=== PATIENT | female | born 1970 | race Caucasian/White ===

== ENCOUNTER 2017-08-03 06:14 | Inpatient (IN) | payer BC ==
[~2017-08-03 06:14] MED LIST: Buffered Lidocaine 0.9% SYRIN* 5 ML/SYR SYRINGE INTRADERM ONE
[2017-08-03] MEDS ORDERED: CeFAZolin 1 GM PREMIX(*) 1 GM BAG (REFRIGERATE) IVPB ONE (06:42)
[2017-08-03] MEDS ORDERED: ceFAZolin 2 GM PREMIX (*) 2 GM/50 ML BAG IVPB ONE (06:42)
[2017-08-03] MEDS ORDERED: Clindamycin 900 MG IVPREMIX(* 900 MG/50 ML SDV IV ONE (06:42)
[2017-08-03] MEDS ORDERED: Buffered Lidocaine 0.9% SYRIN* 5 ML/SYR SYRINGE ONE (06:42)
[2017-08-03] MEDS ORDERED: Heparin VIAL(*) 5000 UNITS/ML VIAL (FIVE THOUSAND) ONE (06:43)
[2017-08-03] MEDS ORDERED: Bupivacaine 0.25% SDV* 30 ML ONE (06:59)
[2017-08-03] MEDS ORDERED: Atracurium* 10 MG/ML 10 ML VIAL ONE (07:35)
[2017-08-03] MEDS ORDERED: Dexamethasone IV* 4 MG/ML 1 ML (4 MG) ONE (07:35)
[2017-08-03] MEDS ORDERED: Propofol* 10 MG/ML 20 ML BTL IV PUSH ONE (07:35)
[2017-08-03] MEDS ORDERED: fentaNYL* 50 MCG/ML 2 ML VIAL (100 MCG VIAL) ONE ×3 (07:35→11:09)
[2017-08-03] MEDS ORDERED: Midazolam* 1 MG/ML 5 ML VIAL (5 MG) ONE (07:36)
[2017-08-03] MEDS ORDERED: Ondansetron INJ* 2 MG/ML VIAL ONE (08:54)
[2017-08-03] MEDS ORDERED: Ondansetron INJ* 2 MG/ML VIAL IV PRN (09:04)
[2017-08-03] MEDS ORDERED: Scopolamine 1.5 mg* PATCH TRANSDERM PRN (09:04)
[2017-08-03] MEDS ORDERED: DiMENhydriNATE IV* 50 MG/ML VIAL IV PUSH PRN (09:04)
[2017-08-03] MEDS ORDERED: Glycopyrrolate IV* 0.2 MG/ML 1 ML VIAL ONE (09:19)
[2017-08-03] MEDS ORDERED: Neostigmine Methylsulfate* 2 MG/2 ML SYRINGE ONE (09:19)
[2017-08-03] MEDS ORDERED: Acetaminophen ADULT LIQ* 650 MG/20.3 ML UDC PO PRN (09:25)
[2017-08-03] MEDS ORDERED: diPHENhydraMINE IV* 50 MG/ML 1 ml VIAL (BENADRYL) SLOW PUSH PRN (09:25)
--- NOTE | 2017-08-03 09:25 | SURGPN ---
Brief Operative Note - Surgery Procedures: Procedures Pre-OP Diagnoses: Clinically severe obesity Post-op Diagnosis: same Procedure: Laparoscopic sleeve gastrectomy Surgeon: Kishore Asst: Tam KAUR Anethesia: MALLORY Laguerre EBL: minimal IVF: 1400cc LR Specimen: portion of stomach Drains: none
[2017-08-03] MEDS ORDERED: HYDROmorphone INJ* 2 MG/ML CARPUJECT SYRINGE ONE (09:33)
[2017-08-03] MEDS: fentaNYL* 50 MCG/ML 2 ML VIAL (100 MCG VIAL) IV PRN ×5 (09:36→11:11)
[2017-08-03] MEDS: HYDROmorphone INJ* 2 MG/ML CARPUJECT SYRINGE IV PRN ×8 (09:38→20:44)
[2017-08-03] MEDS ORDERED: Albuterol HFA INHALER* 8 gm MDI INH PRN (10:00)
[2017-08-03] MEDS ORDERED: Famotidine IV* 10 MG/ML 2 ML (20 mg) ONE (12:03)
[2017-08-03] MEDS ORDERED: Ketorolac INJ* 30 MG/ML 1 ML VIAL ONE (12:03)
[2017-08-03] MEDS: Heparin VIAL(*) 5000 UNITS/ML VIAL (FIVE THOUSAND) SUBCUT SCH ×2 (14:01→22:35)
[2017-08-03] MEDS: Ondansetron INJ* 2 MG/ML VIAL IV PRN (14:25)
[2017-08-03] MEDS: Ketorolac INJ* 30 MG/ML 1 ML VIAL IV PRN (17:55)
[2017-08-04] MEDS: Ketorolac INJ* 30 MG/ML 1 ML VIAL IV PRN ×3 (00:42→16:24)
--- NOTE | 2017-08-04 01:35 | OP ---
CC: [facility] for Metabolic and Bariatric Surgery; Dr. Sterling Piper* OPERATIVE REPORT: DATE OF OPERATION: 08/03/17 - Inpatient, room SSU 353-01. DATE OF : 70 SURGEON: Gamaliel Novak MD FIBRE [employer] CABLE SPLICER: NATASHA Prince ANESTHESIOLOGIST: Dr. Laguerre. ANESTHESIA: General anesthesia. PRE-OP DIAGNOSES: 1. Clinically severe obesity. 2. Gastroesophageal reflux disease. 3. Asthma. 4. Obstructive sleep apnea. POST-OP DIAGNOSES: 1. Clinically severe obesity. 2. Gastroesophageal reflux disease. 3. Asthma. 4. Obstructive sleep apnea. OPERATIVE PROCEDURE: Laparoscopic sleeve gastrectomy. ESTIMATED BLOOD LOSS: Minimal. FLUIDS: 1400 cc of crystalloid fluid given. SPECIMEN: Portion of stomach. COUNTS: Lap pad count and instrument count correct at the end of the procedure. DRAINS: None. DESCRIPTION OF PROCEDURE: Ms. Suarez was identified in the preoperative area, consent was signed. The case was discussed with her and her family members. She was marked, brought to the operating room, and placed on the operating room table in supine position. Preoperative antibiotics were given. Sequential devices were placed on bilateral lower extremities. General anesthesia was induced. The patient's abdomen was prepped and draped in a standard surgical fashion. Time-out was performed. Folds of the umbilicus were elevated anteriorly and a Veress needle was inserted into the abdominal cavity, which was then allowed to insufflate to a pressure of 15 mmHg. The patient tolerated the insufflation well. A 12-mm trocar was then inserted in the upper midline. Laparoscope was inserted through this and there was no evidence of injury from the trocar insertion or from the Veress needle, which was then removed. Additional trocars were then placed in the following position, two 5-mm in the left upper quadrant and a 12- mm in the right upper quadrant. Table was placed in a reverse Trendelenburg and a Emir retractor was inserted through the subxiphoid incision and the liver was retracted anteriorly into the right. The liver appeared broad, but not too enlarged, did extend towards the spleen, which was somewhat enlarged. The liver was then retracted anteriorly into the right and this exposed the gastroesophageal fat pad. Blunt dissection was carried out at the left isidro, grasping the fat pad and retracting towards the right lower quadrant. This exposed the crura. We saw no anterior hiatal hernia. Next, a retrogastric tunnel was made at approximately 6 cm proximal to the pylorus. The greater curvature vasculature was taken with a LigaSure device right up to the angle of His where we had previously dissected. Posterior attachments were similarly taken until the stomach could be completely rotated along its axis. Next, the sleeve stomach was created with 60-mm purple AKTIE stapling device, starting at the 0.6 cm proximal to the pylorus and extending it to the incisura. Before firing this, we did place a 40-Grenadian bougie into the distal stomach. The bougie was hugged throughout the procedure with additional 60-mm purple KATIE load with reinforcement. The staple line was intact and straight, without corkscrewing. The bougie was removed without difficulty. The Emir retractor was then removed and the resected portion of the stomach was placed in the endoscopic retrieval bag and brought out through the right upper quadrant port site, which had to be dilated to get the specimen completely out. We closed the fascia at this site with 0 Polysorb suture with an Endo Close device and then the abdomen was allowed to collapse. Trocar was removed under direct vision. Hemostasis was excellent and all incisions were reapproximated with skin maria e followed by sterile dressing. The patient extubated and transferred to the PACU in stable condition. [id number]/[facility] #: [id number] SANDRAD
[2017-08-04] MEDS: HYDROmorphone INJ* 2 MG/ML CARPUJECT SYRINGE IV PRN ×2 (03:12→06:36)
[2017-08-04] MEDS: Heparin VIAL(*) 5000 UNITS/ML VIAL (FIVE THOUSAND) SUBCUT SCH ×3 (06:36→22:35)
[2017-08-04] MEDS ORDERED: Influenza VAC *QUAD* 2017-18* 0.5 ML SYRINGE IM ONE (09:00)
[2017-08-04] MEDS ORDERED: Famotidine IV* 10 MG/ML 2 ML (20 mg) ONE (09:29)
--- NOTE | 2017-08-04 10:32 | RAD ---
INDICATION: 1 day postop gastric sleeve bariatric surgery. COMPARISON: No relevant prior exams available on the [facility] for comparison. TECHNIQUE: 0.1 minutes fluoroscopy. REPORT AND IMPRESSION: Swallowed Gastrografin passes from the esophagus through the post gastric sleeve stomach to the duodenum without delay. No evidence for obstruction or enteric leak. CPT II Codes: 6045F
[2017-08-04] MEDS: Ondansetron INJ* 2 MG/ML VIAL IV PRN (10:33)
[2017-08-04] MEDS: D5W 1/2 NS KCl 20 Meq 1000 ML* 1,000 ML IV SCH ×2 (10:36→19:33)
--- NOTE | 2017-08-04 11:57 | PN ---
Progress Note - Progress Note Date of Service: 08/04/17 SOAP: Subjective: Pt seen and examined. Pt c/o RUQ pain. No nausea. Objective: af vss uo good lungs clear abdo: soft/ ND/ incisional tenderness dressing intact no calf tenderness UGi wnl Assessment: POD1 sleeve, stable Plan: advance diet d/c planning
[2017-08-04] MEDS: HYDROcodone/ACET. 7.5/325 LIQ* 15 ML UDC PO PRN ×2 (16:24→22:34)
[2017-08-05] MEDS: Ketorolac INJ* 30 MG/ML 1 ML VIAL IV PRN ×2 (03:14→09:31)
[2017-08-05] MEDS: D5W 1/2 NS KCl 20 Meq 1000 ML* 1,000 ML IV SCH (03:52)
[2017-08-05] MEDS: Heparin VIAL(*) 5000 UNITS/ML VIAL (FIVE THOUSAND) SUBCUT SCH (05:52)
[2017-08-05] MEDS: HYDROcodone/ACET. 7.5/325 LIQ* 15 ML UDC PO PRN (05:56)
--- NOTE | 2017-08-05 08:29 | PN ---
Progress Note - Progress Note Date of Service: 08/05/17 SOAP: Subjective: Doing better today, less RUQ pain. Tolerating stage I bariatric diet, denies nausea or vomiting. Ambulatory. Objective: VSS, afebrile Awake and alert, walking down the short, in NAD Lungs CTA bilat. Heart RRR, no murmurs. Abdomen soft, ND. Mild RUQ incisional tenderness, no guarding or rigidity. Incisions C/D/I. Ext. without edema I/O noted Assessment: A 47 y/o female, POD#2, s/p laparoscopic sleeve gastrectomy, doing well. Plan: D/C IVF D/C to home later today. F/U with Dr. Novak at Bariatric center as scheduled.
[2017-08-05] MEDS ORDERED: Famotidine IV* 10 MG/ML 2 ML (20 mg) ONE (08:58)
[2017-08-05] MEDS ORDERED: Ketorolac INJ* 30 MG/ML 1 ML VIAL IV PUSH PRN (09:32)
[2017-08-05 10:45] VITALS: BP 100/62
--- NOTE | 2017-08-05 23:27 | DS ---
CC: Sterling Piper, DO * DISCHARGE SUMMARY: DATE OF ADMISSION: 08/03/17 DATE OF DISCHARGE: 08/05/17 PATIENT OF: Dr. Gamaliel Novak * (DICTATED BY NATASHA FONTANEZ) ADMISSION DIAGNOSES: 1. Clinically severe obesity. 2. Gastroesophageal reflux disease. 3. Asthma. 4. Obstructive sleep apnea. DISCHARGE DIAGNOSES: 1. Clinically severe obesity. 2. Gastroesophageal reflux disease. 3. Asthma. 4. Obstructive sleep apnea. ADMITTING PHYSICIAN: Gamaliel Novak MD. CONSULTATIONS: None. PROCEDURE: Laparoscopic sleeve gastrectomy on 08/03/17. BRIEF MEDICAL HISTORY: Mrs. Suarez is a pleasant 47-year-old female who was seen at the weight loss center in consideration for a surgical intervention. The patient had suffered from morbid obesity most of her adult life. She had multiple attempts of diet and exercise that failed to maintain her weight loss. She was evaluated by the bariatric center and was found to be a good candidate for a sleeve gastrectomy. The patient was seen multiple times and scheduled tentatively to undergo surgery. HOSPITAL COURSE: The patient was admitted on the same day and was taken to the operating room on 08/03/17 where she had a laparoscopic sleeve gastrectomy that was essentially unremarkable. After recovery, she was transferred to the surgical floor for observation. She did extremely well, was only mild incisional discomfort. She was ambulatory out of bed on the following day. She had a followup upper GI study that revealed no evidence of leak. She started on bariatric stage I clear liquid diet that she tolerated well. She remained ambulatory and her vitals were stable. On discharge morning, she was doing much better and report less incisional discomfort. She will be discharged to home today and will be followed up at the [facility] for metabolic and bariatric surgery next week with Dr. Novak. DISCHARGE MEDICATIONS: Include Lortab Elixir at 7.5/325 one tablespoon q.6 hours as needed for pain. PROBLEM LIST: 1. Morbid obesity, status post laparoscopic sleeve gastrectomy on 08/03/17. 2. GERD. 3. Asthma. 4. Obstructive sleep apnea. NATASHA FONTANEZ [id number]/[facility] #: [id number] [facility]
[2017-08-06] MEDS ORDERED: Scopolomine PATCH Remove* 1 NOTE MISC PATCH OFF ONE (09:05)
== END 2017-08-05 11:03 | disposition home or self-care (01) | DRG 403 ==
LOC: AA 06:14 → SSU 11:46
PROVIDERS: ADMIT Surgery; ATTEND Surgery
PROC: 0DB64Z3 Excision of Stomach, Percutaneous Endoscopic Approach, Vertical (ICD-10-PCS; principal; 2017-08-03 07:45)
DX: E66.01 Morbid (severe) obesity due to excess calories (principal); E03.9 Hypothyroidism, unspecified; K21.9 Gastro-esophageal reflux disease without esophagitis; G47.33 Obstructive sleep apnea (adult) (pediatric); J45.909 Unspecified asthma, uncomplicated; K44.9 Diaphragmatic hernia without obstruction or gangrene; Z90.710 Acquired absence of both cervix and uterus; Z68.42 Body mass index [BMI] 45.0-49.9, adult
CPT/HCPCS: 43775; 74246; 88307; 90686; 94760; A9270-GY; J0690; J1100; J1170; J1644; J1885; J2250; J2405; J2704; J3010